=== PATIENT | male | born 1960 | race Caucasian/White ===

== ENCOUNTER 2020-02-13 13:43 | Emergency (ER) | payer SELFPAY ==
--- OUTSIDE RECORDS SUMMARY | 2020-02-13 13:45 | XMS REPORT | Continuity of Care Document ---
:1960 Author Organization [facility] t Address [address] [place] [address] Care Team Providers Name Role Phone NAVID Attending Clinician Unavailable Problems Condition Condition Condition Status Onset Resolution Last Treating Co mments Source Name Details Category Date Date Treatment Clinician Date History of History of Problem Resolve Univers Hay fever Hay fever d [facility] [place] [facility] History of History of Problem Resolve Univers hypertensi hypertensi d it y of on on [place] [facility] History of History of Problem Resolve Univers migraine migraine d [facility]y of [place] [facility] Knee pain Knee pain Problem Active Uni vers [facility]y of [place] [facility] Arthritis Arthritis Problem Active Uni vers of knee, of knee, ity of left left [place] [facility] Acute pain Acute pain Problem Active U nivers of right of right ity of shoulder shoulder [place] [facility] Rotator Rotator Problem Active Univers cuff cuff [place] of tendon[place] right , right Physici ans Right Right Problem Active Univers elbow pain elbow pain it y of [place] [facility] Medial Medial Problem Active Univers epicondyli epicondyli it y of tis of tis of [place] left elbow left elbow Ph ysici ans Allergies, Adverse Reactions, Alerts Allergy Allergy Status Severity Reaction(s) Onset Inactive Treating Comm ents Source Name Type Date Date Clinician Compazin Allergy Active Univers e TABS to drug ity of (finding [place] ) Physici ans Family History Family Member Diagnosis Comments Start Date Stop Date Source Mother Family history of [facility] [place] arthritis Physicians Mother Family history of [facility] [place] mental disorder Physician s Mother Family history of [facility] [place] Heart trouble Physicians Father Family history of [facility] [place] diabetes mellitus Physici ans Father Family history of [facility] [place] hypertension Physicians Social History Smoking Status Start Date Stop Date Source [facility] Medications Ordered Filled Start Stop Current Ordering Indication Dosage Frequency Signature Comments Components Source Medication Medication Date Date Medication? Clinician (SIG) Name Name Cialis TABS [facility]S [facility] Vital Signs Vital Name Observation Time Observation Value Comments Source Systolic blood 2019-11-02 16:27:00 132 [facility]Hg[facility] [place] [facility] Diastolic blood 2019-11-02 16:27:00 80 mm[Hg] [facility] pressure Physicians Weight 2019-11-02 16:27:00 209 [lb_av] [facility] Physicians Body mass index 2019-11-02 16:27:00 26.83 kg/m2 [facility] (BMI) [Ratio] Physicians Heart Rate 2019-11-02 16:27:00 64 /min [facility] Physicians Procedures Procedure Date / Time Performing Clinician Source Performed [U] XRAY ELBOW MIN 3 2019-11-01 00:00:00 [facility] 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
--- NOTE | 2020-02-13 14:26 | RAD REPORT ---
EXAM DESCRIPTION: RAD - Chest Single View - 02/13/2020 2:21 pm CLINICAL HISTORY: CHEST PAIN Chest pain. COMPARISON: No comparisons FINDINGS: Portable technique limits examination quality. The lungs are grossly clear. The heart is normal in size. No displaced fractures. IMPRESSION: No acute intrathoracic process suspected.
[2020-02-13] MEDS ORDERED: LIDOCAINE VISCOUS 2% SOLN 15 ML UDC ONE (14:56)
[2020-02-13] MEDS ORDERED: MORPHINE 2 MG/ML SYR ONE (14:56)
[2020-02-13] MEDS ORDERED: MAGNE/ALUM HYDROXD 30 ML UCUP ONE (14:56)
[2020-02-13 15:13] LABS: Absolute Lymphocytes (CBC) 1.2 K/uL (0.7-4.9); Basophils % 0.4 % (0-1.3); Lymphocytes % 16.9 % (15.3-44.8); MPV 7.4 fL (7.6-11.3)
[2020-02-13 15:18] LABS: ALT/SGPT 23 U/L (12-78); AST/SGOT 20 U/L (15-37); Albumin 3.6 g/dL (3.4-5.0); Alkaline Phosphatase 61 U/L (45-117); BUN Blood Urea Nitrogen 17 mg/dL (7-18); Bicarbonate 26 mmol/L (21-32); Bilirubin Direct 0.2 mg/dL (0-0.2); Bilirubin Total 0.4 mg/dL (0.2-1.0); Glucose Level 95 mg/dL (74-106); Lipase 89 U/L (73-393); NT PRO-BNP 24 pg/mL (<125); Potassium 4.2 mmol/L (3.5-5.1); Protein, Total 7.1 g/dL (6.4-8.2); Sodium Level 140 mmol/L (136-145); Troponin (Emerg Dept Use Only) < 0.02 ng/mL (0.0-0.045)
--- NOTE | 2020-02-13 18:19 | ER ---
Nurse's Notes [facility] Name: Miguel Plasencia Age: 60 yrs Sex: Male : 1960 Arrival Date: 02/13/2020 Time: 13:45 Bed 4 Private MD: Diagnosis: Chest pain, unspecified Presentation: 02/12 13:56 Chief complaint: Patient states: Heartburn and fatigue yesterday, then today had ph midsternal chest pressure, mild nausea and slight SOB, denies diaphoresis, dizziness or vomiting. Coronavirus screen: Patient denies a cough. Patient denies shortness of breath or difficulty breathing. Patient denies measured and/or subjective temperature greater than 100.4F prior to today's visit. Patient denies travel on a cruise ship or to a country the [facility] currently lists as an affected area. Patient denies contact with known and/or suspected case of COVID-19. Ebola Screen: No symptoms or risks identified at this time. Initial Sepsis Screen: Does the patient meet any 2 criteria? No. Patient's initial sepsis screen is negative. Does the patient have a suspected source of infection? No. Patient's initial sepsis screen is negative. Risk Assessment: Do you want to hurt yourself or someone else? Patient reports no desire to harm self or others. Onset of symptoms was February 13, 2020. 13:56 Method Of Arrival: Ambulatory 13:56 Acuity: RHYS 3 ph Historical: - Allergies: 14:03 Compazine; ph - Home Meds: 14:03 Cialis oral oral [Active]; ph - PMHx: 14:03 None; ph - PSHx: 14:03 cardiac catheterization; ph - Immunization history:: Adult Immunizations unknown. - Social history:: Smoking status: Patient reports the use of cigarette tobacco products, cigars. - Family history:: not pertinent. - Hospitalizations: : No recent hospitalization is reported. Screenin:03 Abuse screen: Denies threats or abuse. Denies injuries from another. Nutritional ph screening: No deficits noted. Tuberculosis screening: No symptoms or risk factors identified. Fall Risk None identified. Assessment: 14:03 General: Appears in no apparent distress. comfortable, slender, well groomed, well ph developed, Behavior is calm, cooperative, appropriate for age, Denies fever, feeling ill. Pain: Complains of pain in mid-sternal area Pain does not radiate. Pain currently is 7 out of 10 on a pain scale. Quality of pain is described as pressure, Pain began gradually. 14:03 Neuro: Level of Consciousness is awake, alert, obeys commands, Oriented to person, ph place, time, situation. Cardiovascular: Reports chest pain, fatigue, shortness of breath, Denies diaphoresis, palpitations, syncope, vomiting, Capillary refill < 3 seconds in bilateral fingers Patient's skin is warm and dry. Rhythm is sinus rhythm. Respiratory: Airway is patent Respiratory effort is even, unlabored, Respiratory pattern is regular, symmetrical. GI: No signs and/or symptoms were reported involving the gastrointestinal system. Derm: Skin is intact, is healthy with good turgor, Skin is pink, warm \T\ dry. Musculoskeletal: Circulation, motion, and sensation intact. Range of motion: intact in all extremities. 15:02 Reassessment: Patient appears in no apparent distress at this time. Patient and/or ph family updated on plan of care and expected duration. Pain level reassessed. Patient is alert, oriented x 3, equal unlabored respirations, skin warm/dry/pink. Pt resting comfortably, VSS, awaiting lab results, SO at bedside. 16:11 Reassessment: Patient appears in no apparent distress at this time. No changes from previously documented assessment. Patient and/or family updated on plan of care and expected duration. Pain level reassessed. Patient is alert, oriented x 3, equal unlabored respirations, skin warm/dry/pink. 17:20 Reassessment: Patient appears in no apparent distress at this time. Patient and/or ph family updated on plan of care and expected duration. Pain level reassessed. Patient is alert, oriented x 3, equal unlabored respirations, skin warm/dry/pink. Pt resting comfortably, VSS, denies chest pain, SOB or nausea at this time, awaiting results of repeat cardiac enzymes, SO at bedside. 18:29 Reassessment: Patient appears in no apparent distress at this time. Patient and/or ph family updated on plan of care and expected duration. Pain level reassessed. Patient is alert, oriented x 3, equal unlabored respirations, skin warm/dry/pink. 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 Vital Signs: 13:56 BP 144 / 79; Pulse 77; Resp 18; Temp 98.9; Pulse Ox 96% on R/A; Weight 92.99 kg; Height ph 6 ft. 1 in. (185.42 cm); Pain 7/10; 15:03 BP 121 / 76; Pulse 60; Resp 19; Pulse Ox 97% on R/A; ph 15:58 BP 129 / 86; Pulse 72; Resp 18; Pulse Ox 97% on R/A; ph 16:11 BP 138 / 89; Pulse 71; Resp 18; Pulse Ox 97% on R/A; ph 17:21 BP 124 / 62; Pulse 67; Resp 16; Pulse Ox 96% on R/A; ph 18:30 BP 126 / 68; Pulse 64; Resp 18; Temp 97.8; Pulse Ox 97% on R/A; ph 13:56 Body Mass Index 27.05 (92.99 kg, 185.42 cm) ph Vitals: 15:03 Cardiac Rhythm Assessment Sinus rhythm. ph ED Course: 13:45 Patient arrived in ED. fj1 13:46 Rodrigo Worrell MD is Attending Physician. rn 13:54 EKG done, by ED staff, reviewed by Rodrigo Worrell MD. 3 13:55 Hiren Tucker, RN is Primary Nurse. em 13:56 Bea Hartman, RN is Primary Nurse. ph 14:01 Triage completed. ph 14:03 Arm band placed on Patient placed in an exam room, on a stretcher, on cardiac exercise physiologist, ph on pulse oximetry. 14:03 Patient has correct armband on for positive identification. Placed in gown. Bed in low ph position. Call light in reach. Side rails up X2. monitoring manager on. Pulse ox on. NIBP on. Door closed. Noise minimized. Warm blanket given. Head of bed elevated. 14:21 XRAY Chest (1 view) In Process Unspecified. EDMS 14:45 Inserted saline lock: 20 gauge in right forearm, using aseptic technique. Patient ph maintains SpO2 saturation greater than 95% on room air. 17:18 EKG done, by ED staff, reviewed by Rodrigo Worrell MD. 3 18:18 León Overton MD is Referral Physician. rn 18:30 No provider procedures requiring assistance completed. IV discontinued, intact, ph bleeding controlled, No redness/swelling at site. Pressure dressing applied. Administered Medications: 14:57 Drug: GI Cocktail without - (Maalox Suspension 30 ml, Lidocaine Liquid 2 % 15 ph ml) Route: PO; 17:21 Follow up: Response: No adverse reaction; Pain is decreased ph 17:22 Not Given (Other Intervention Used): morphine 2 mg IVP once; (PAIN>8) RASS on ADMN: ph Combtv4, Very Agttd3, Agttd2, Rstlss1, AlertClm0, Drwsy-1, LtSdtn-2, ModSdtn-3, DpSdtn-4, UnArsble-5 x2 Outcome: 18:19 Discharge ordered by MD. rn 18:31 Discharged to home ambulatory, with significant other. ph 18:31 Condition: good 18:31 Discharge instructions given to patient, Instructed on discharge instructions, follow up and referral plans. Demonstrated understanding of instructions, follow-up care. 18:32 Patient left the ED. ph Signatures: Dispatcher [employer] EDMS Hiren Tucker RN RN em Nieto, Roman, MD MD rn Hall, Patricia, RN RN ph Herrera, Deanna 3 Helder Treviño 1 Corrections: (The following items were deleted from the chart) 15:01 14:03 Pain: Complains of pain in mid-sternal area ph ph 15:03 15:00 Neuro: Level of Consciousness is awake, alert, obeys commands, Oriented to ph person, place, time, situation, ph 15:03 15:00 Cardiovascular: Reports chest pain, fatigue, shortness of breath, Denies ph diaphoresis, palpitations, syncope, vomiting, Capillary refill < 3 seconds in bilateral fingers Patient's skin is warm and dry. Rhythm is sinus rhythm ph 15: 15:00 Respiratory: Airway is patent Respiratory effort is even, unlabored, Respiratory ph pattern is regular, symmetrical, ph 15: 15:00 GI: No signs and/or symptoms were reported involving the gastrointestinal system. ph ph 15:03 15:00 Derm: Skin is intact, is healthy with good turgor, Skin is pink, warm \T\ dry. ph ph 15:03 15:00 Musculoskeletal: Circulation, motion, and sensation intact. Range of motion: ph intact in all extremities, ph
--- NOTE | 2020-02-13 18:21 | EDPHYS ---
Physician Documentation [facility] Name: Miguel Plasencia Age: 60 yrs Sex: Male : 1960 Arrival Date: 02/13/2020 Time: 13:45 Bed 4 Private MD: ED Physician Rodrigo Worrell HPI: 02/12 14:49 This 60 yrs old Male presents to ER via Ambulatory with complaints of Chest rn Pain. 14:49 The patient or guardian reports chest pain that is located primarily in the substernal rn area. Onset: just prior to arrival. The pain does not radiate. Associated signs and symptoms: Pertinent negatives: abdominal pain, cough, diaphoresis, lightheadedness, near syncope, recent travel, shortness of breath, syncope, vomiting. The chest pain is described as dull, a heaviness. Duration: The patient or guardian reports a single episode, that is still ongoing. Modifying factors: The symptoms are alleviated by nothing. the symptoms are aggravated by nothing. Severity of pain: At its worst the pain was moderate in the emergency department the pain is unchanged. The patient has not experienced similar symptoms in the past. Reports riding bike, sudden onset central chest pressure/dullness, no radiation, no diaphoresis, has never felt before, + smoker, not worse with inspiration or palpation. No fever. No trauma. No abd pain. No vomiting. Had heavy meal last night, woke up with some indigestion.. Historical: - Allergies: 14:03 Compazine; ph - Home Meds: 14:03 Cialis oral oral [Active]; ph - PMHx: 14:03 None; ph - PSHx: 14:03 cardiac catheterization; ph - Immunization history:: Adult Immunizations unknown. - Social history:: Smoking status: Patient reports the use of cigarette tobacco products, cigars. - Family history:: not pertinent. - Hospitalizations: : No recent hospitalization is reported. ROS: 14:49 Constitutional: Negative for fever, chills, and weight loss, Eyes: Negative for injury, rn pain, redness, and discharge, Cardiovascular: Negative for palpitations, and edema, Respiratory: Negative for shortness of breath, cough, wheezing, and pleuritic chest pain, Abdomen/GI: Negative for abdominal pain, vomiting, diarrhea, and constipation, MS/Extremity: Negative for injury and deformity, Skin: Negative for injury, rash, and discoloration, Neuro: Negative for headache, weakness, numbness, tingling, and seizure. Exam: 14:10 ECG was reviewed by the Attending Physician. rn 14:49 Constitutional: This is a well developed, well nourished patient who is awake, alert, rn and in no acute distress. Head/Face: Normocephalic, atraumatic. ENT: dry MM Cardiovascular: Regular rate and rhythm. No pulse deficits. Respiratory: Lungs have equal breath sounds bilaterally, clear to auscultation. No increased work of breathing, no retractions or nasal flaring. Abdomen/GI: soft, non-tender MS/ Extremity: Pulses equal, no cyanosis. Neurovascular intact. Full, normal range of motion. Equal circumference. Neuro: Awake and alert, GCS 15, oriented to person, place, time, and situation. Cerebellar exam normal. Normal gait. Vital Signs: 13:56 BP 144 / 79; Pulse 77; Resp 18; Temp 98.9; Pulse Ox 96% on R/A; Weight 92.99 kg; Height ph 6 ft. 1 in. (185.42 cm); Pain 7/10; 15:03 BP 121 / 76; Pulse 60; Resp 19; Pulse Ox 97% on R/A; ph 15:58 BP 129 / 86; Pulse 72; Resp 18; Pulse Ox 97% on R/A; ph 16:11 BP 138 / 89; Pulse 71; Resp 18; Pulse Ox 97% on R/A; ph 17:21 BP 124 / 62; Pulse 67; Resp 16; Pulse Ox 96% on R/A; ph 18:30 BP 126 / 68; Pulse 64; Resp 18; Temp 97.8; Pulse Ox 97% on R/A; ph 13:56 Body Mass Index 27.05 (92.99 kg, 185.42 cm) ph MDM: 13:46 Patient medically screened. rn 15:33 ED course: Pt with neg w/u, normal ecg, neg trop, neg d-dimer, normal cxr, normal rn vitals. Reports pressure has resolved, now having more heartburn than anything. Is hungry. We discussed how admission is best at this point for further w/u including ECHO/stress test/cardiology consult, patient expressed concern since self-pay, wants to go home with outpt w/u. understands risks of going home without clear etiology of his chest pain. Told him atleast to let me obtain repeat ecg and trop and decide after that. . ED course: Nitro not given 2/2 to taking cialis. . 15:36 ED course: Will repeat trop and ECG and 1700. rn 17:16 ED course: Pt sleeping comfortably. . rn 17:19 ED course: RPT ECG no changes, HR 60, NSR, no signs of ischemia. . rn 18:16 Differential diagnosis: acute myocardial infarction, acute pericarditis, anxiety, rn coronary artery disease chest wall pain, costochondritis, esophagitis, gastritis, gastroesophageal reflux disease (GERD), pericarditis, pleurisy, pneumonia, pneumothorax, pulmonary embolus, stable angina. Data reviewed: vital signs, nurses notes, lab test result(s), EKG, radiologic studies, plain films, and as a result, I will discharge patient. 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 Response to treatment: the patient's symptoms have resolved after treatment, the patient's condition has returned to base line, the patient is now symptom free, and as a result, I will discharge patient. Special discussion: Based on the patient's history, exam, and Dx evaluation, there is no indication for emergent intervention or inpatient Tx. It is understood by the patient/guardian that if the Sx's persist or worsen they need to return immediately for re-evaluation. Based on the history and exam findings, there is no indication for further emergent testing or inpatient evaluation. I discussed with the patient/guardian the need to see the dairy feed worker for further evaluation of the symptoms. ED course: Pt wants to go home, repeat trop and ecg unchanged/neg, will dc home with instructions for urgent cardiology f/u for ECHO/stress test, as well as counseled about smoking cessation. . 02/12 14:05 Order name: Basic Metabolic Panel rn 02/12 14:05 Order name: CBC with Diff; Complete Time: 15:23 rn 02/12 14:05 Order name: LFT's; Complete Time: 15:23 rn 02/12 14:05 Order name: NT PRO-BNP; Complete Time: 15:23 rn 02/12 14:05 Order name: Troponin (emerg Dept Use Only); Complete Time: 15:23 rn 02/12 14:05 Order name: Lipase; Complete Time: 15:23 rn 02/12 14:05 Order name: XRAY Chest (1 view); Complete Time: 14:35 rn 02/12 14:05 Order name: EKG; Complete Time: 14:06 rn 02/12 14:05 Order name: Cardiac monitoring; Complete Time: 14:34 rn 02/12 14:06 Order name: D-Dimer; Complete Time: 15:23 rn 02/12 14:06 Order name: Basic Metabolic Panel; Complete Time: 15:23 EDMS 02/12 17:13 Order name: Troponin (emerg Dept Use Only); Complete Time: 18:01 ph 02/12 14:05 Order name: EKG - Nurse/Tech; Complete Time: 14:08 rn 02/12 14:05 Order name: IV Saline Lock; Complete Time: 14:47 rn 02/12 14:05 Order name: Labs collected and sent; Complete Time: 14:47 rn 02/12 14:05 Order name: O2 Per Protocol; Complete Time: 14:47 rn 02/12 14:05 Order name: O2 Sat Monitoring; Complete Time: 14:47 rn 02/12 17:13 Order name: EKG - Nurse/Tech; Complete Time: 17:19 ph EC:10 Rate is 82 beats/min. Rhythm is regular. QRS [place] is Normal. NM interval is normal. QRS rn interval is normal. QT interval is normal. No Q waves. T waves are Normal. No ST changes noted. Clinical impression: Normal ECG. Interpreted by me. Reviewed by me. Administered Medications: 14:57 Drug: GI Cocktail without - (Maalox Suspension 30 ml, Lidocaine Liquid 2 % 15 ph ml) Route: PO; 17:21 Follow up: Response: No adverse reaction; Pain is decreased ph 17:22 Not Given (Other Intervention Used): morphine 2 mg IVP once; (PAIN>8) RASS on ADMN: ph Combtv4, Very Agttd3, Agttd2, Rstlss1, AlertClm0, Drwsy-1, LtSdtn-2, ModSdtn-3, DpSdtn-4, UnArsble-5 x2 Disposition: 02/13/20 18:19 Discharged to Home. Impression: Chest pain, unspecified. - Condition is Stable. - Discharge Instructions: Nonspecific Chest Pain, Pain Without a Known Cause. - Medication Reconciliation Form, Thank You Letter, Antibiotic Education, Prescription Opioid Use form. - Follow up: León Overton MD; When: 2 - 3 days; Reason: Recheck today's complaints, Re-evaluation by your physician. - Problem is new. - Symptoms have improved. Signatures: Dispatcher [employer] EDRodrigo Finch MD MD rn Hall, Patricia, RN RN ph Corrections: (The following items were deleted from the chart) 18:32 18:19 02/13/2020 18:19 Discharged to Home. Impression: Chest pain, unspecified. ph Condition is Stable. Forms are Medication Reconciliation Form, Thank You Letter, Antibiotic Education, Prescription Opioid Use. Follow up: León Overton; When: 2 - 3 days; Reason: Recheck today's complaints, Re-evaluation by your physician. Problem is new. Symptoms have improved. rn
[2020-02-13 18:47] VITALS: BP 126/68; TEMP 97.8; O2SAT 97
--- NOTE | 2020-02-14 07:46 | EKG ---
Test Date: 2020-02-13 Test Time: 17:15:08 Cell Builder: MERY MEASUREMENT RESULTS: Intervals: Rate: 60 NV: 170 QRSD: 102 QT: 400 QTc: 400 [place]: P: 70 NV: 170 QRS: 77 T: 74 INTERPRETIVE STATEMENTS: Normal sinus rhythm Normal ECG Compared to ECG 02/13/2020 13:53:34 No significant changes Electronically Signed On 02-14-20 07:44:38 CDT by León Overton
--- NOTE | 2020-02-14 07:46 | EKG ---
Test Date: 2020-02-13 Test Time: 13:53:34 Childcare Attendant: MERY MEASUREMENT RESULTS: Intervals: Rate: 82 NM: 152 QRSD: 86 QT: 358 QTc: 418 [place]: P: 83 NM: 152 QRS: 81 T: 74 INTERPRETIVE STATEMENTS: Normal sinus rhythm Normal ECG No previous ECG available for comparison Electronically Signed On 02-14-20 07:44:41 CDT by León Overton
== END 2020-02-13 18:32 | disposition home or self-care (01) ==
LOC: ER 13:43
DX: R07.9 Chest pain, unspecified (principal); F17.290 Nicotine dependence, other tobacco product, uncomplicated; Z88.1 Allergy status to other antibiotic agents
CPT/HCPCS: 36415; 71045; 80048; 80076; 83690; 83880; 84484; 85025; 85379; 93005; 99285; J2270